=== PATIENT | male | born 1960 | race Caucasian/White ===

== ENCOUNTER 2016-03-21 13:00 | Outpatient (RCR) | payer BC | END 2016-05-22 | disposition home or self-care (01) | LOC: WSST | DX: R13.12 Dysphagia, oropharyngeal phase (principal) ==

== ENCOUNTER 2018-08-19 17:18 | Emergency (ER) | payer BC ==
[~2018-08-19] VITALS: Ht 172.7 cm; Wt 95.5 kg
[2018-08-19 17:28] VITALS: BP 136/79; TEMP 97.7
[2018-08-19] MEDS ORDERED: AMOXICILLIN 8751 TAB PO (19:01)
[2018-08-19 19:24] VITALS: PULSE 74
== END 2018-08-19 19:24 | disposition home or self-care (01) ==
LOC: COL.ER 17:18
DX: S71.132A Puncture wound without foreign body, left thigh, initial encounter (principal); W54.0XXA Bitten by dog, initial encounter; Y92.830 Public park as the place of occurrence of the external cause